=== PATIENT | female | born 1965 | race Caucasian/White ===

== ENCOUNTER 2019-08-24 15:23 | Outpatient (CLI) | payer OTHER ==
--- NOTE | 2019-08-24 15:57 | RAD ---
Exam: XR Hand Rt 3 View STANDARD HISTORY: Rheumatoid arthritis. COMPARISON: None FINDINGS: Small lucency with sclerotic margins is seen in the triquetral bone which may represent small intraos seous ganglion. Similar finding is seen within the trapezium bone. No appreciable erosions or significant joint space narrowing is identified. No acute fracture, dislocation, or other acute osseous abnormality is identified. IMPRESSION: No acute osseous abnormality is identified.
--- NOTE | 2019-08-24 16:07 | RAD ---
EXAM: RIGHT SHOULDER THREE VIEWS: 08/24/19 HISTORY: Right shoulder pain. FINDINGS: Arthrosis and degenerative changes. No acute fracture or dislocation. IMPRESSION: Arthrosis and degenerative changes of the AC joint and glenohumeral joint. No fracture or dislocation . POS: [facility]
--- NOTE | 2019-08-24 16:08 | RAD ---
EXAM: LEFT HAND THREE VIEWS: 08/24/19 HISTORY: Rheumatoid arthritis. FINDINGS: There are some generalized osteoarthrosis changes including the triscaphe region and the trapezium fi rst metacarpal joint. No fracture or dislocation. IMPRESSION: Osteoarthrosis changes. No evidence for significant acute inflammatory arthritis. POS: [facility]
== END 2019-08-24 15:24 | disposition home or self-care (01) ==
LOC: MADLABBHPM 15:23
PROVIDERS: ATTEND Family Medicine
DX: M25.511 Pain in right shoulder (principal); M06.9 Rheumatoid arthritis, unspecified; M19.011 Primary osteoarthritis, right shoulder; M18.12 Unilateral primary osteoarthritis of first carpometacarpal joint, left hand
CPT/HCPCS: 83520; 86140

== ENCOUNTER 2019-09-18 12:07 | Outpatient (CLI) | payer OTHER ==
--- NOTE | 2019-09-18 13:31 | RAD ---
LUMBAR SPINE 3 VIEWS: Date: 09/18/2019 HISTORY: Back pain. FINDINGS: Lumbar vertebra maintain normal height and alignment. Mild loss of disc space at the L2-3 level. Mild osteophytes are seen anteriorly at L2-3. The other disc spaces are preserved. No evidence of spondyl olisthesis or spondylolysis. Mild facet hypertrophy. IMPRESSION: Mild degenerative changes, most pronounced at the L2-3 level as described. POS: [facility]
--- NOTE | 2019-09-18 13:32 | RAD ---
CERVICAL SPINE 4 VIEWS: Date: 09/18/2019 INDICATION: Neck pain. FINDINGS: Cervical vertebra maintain normal height and alignment. Mild loss of disc space at the C4-5 and C5-6 level. Mild degenerative spurring from the cervical vertebra most prominent at C4-5 and C5-6. Posteri or spondylosis seen at C4-5. IMPRESSION: There are degenerative changes of the cervical spine as described. POS: [facility]
--- NOTE | 2019-09-18 13:33 | RAD ---
SACROILIAC JOINTS 3 VIEWS: Date: 09/18/2019 HISTORY: Back pain. FINDINGS: SI joints appear normally maintained and are symmetric. No abnormal sclerosis identified. Sacrum appe ars unremarkable. IMPRESSION: Unremarkable sacroiliac joints. POS: [facility]
== END 2019-09-18 12:08 | disposition home or self-care (01) ==
LOC: MADRAD 12:07
PROVIDERS: ATTEND Family Medicine
DX: M54.2 Cervicalgia (principal); M54.5 Low back pain; M53.3 Sacrococcygeal disorders, not elsewhere classified; M47.812 Spondylosis without myelopathy or radiculopathy, cervical region; M47.816 Spondylosis without myelopathy or radiculopathy, lumbar region
CPT/HCPCS: 72040; 72100; 72202